=== PATIENT | female | born 1970 | race Caucasian/White ===

== ENCOUNTER 2017-09-20 07:52 | Emergency (ER) | payer BC ==
[2017-09-20 08:03] VITALS: BP 123/71
--- NOTE | 2017-09-20 09:07 | UC ---
Eye Complaint HPI - HPI Summary HPI Summary: 47 year old female with eye complaint. Possible RIGHT pinkeye. Woke up yesterday w/ RIGHT eye drainage. Today pt had more RIGHT eye drainage, irritation and crusting. Has had a cold last week but no fever or trauma. no FB sensation. no vision changes [ End ] - History of Current Complaint Chief Complaint: UCEye Stated Complaint: RIGHT EYE COMPLAINT Time Seen by Provider: 09/20/17 08:57 Hx Obtained From: Patient ?: No Onset/Duration: Gradual Onset Timing: Constant Severity Initially: Mild Severity Currently: Mild Location of Injury: Conjunctiva, Sclera Aggravating Factor(s): Nothing Alleviating Factor(s): Nothing Associated Signs And Symptoms: Positive: Drainage (Purulent). Negative: Vision Impairment Bilateral - Allergies/Home Medications Allergies/Adverse Reactions: Allergies Allergy/AdvReac Type Severity Reaction Status Date / Time No Known Allergies Allergy Verified 09/20/17 07:57 PMH/Surg Hx/FS Hx/Imm Hx Previously Healthy: Yes - Surgical History Surgical History: None - Social History Occupation: Employed Full-time Lives: With Family Alcohol Use: Occasionally Substance Use Type: None Smoking Status (MU): Never Smoked Tobacco - Immunization History Most Recent Influenza Vaccination: not yet Review of Systems Constitutional: Negative Skin: Negative Eyes: Negative, Drainage, Eye Redness ENT: Negative Respiratory: Negative Cardiovascular: Negative Gastrointestinal: Negative Genitourinary: Negative Motor: Negative Neurovascular: Negative Musculoskeletal: Negative Neurological: Negative Psychological: Negative Is Patient Immunocompromised?: No All Other Systems Reviewed And Are Negative: Yes Physical Exam Triage Information Reviewed: Yes Appearance: Well-Appearing, No Pain Distress, Well-Nourished Vital Signs: Initial Vital Signs Temp 98 F 09/20/17 07:58 Pulse 81 09/20/17 07:58 Resp 16 09/20/17 07:58 BP 123/71 09/20/17 07:58 Pulse Ox 99 09/20/17 07:58 Vital Signs Reviewed: Yes Eye Exam: Normal Eyes: Positive: Conjunctiva Inflamed, Discharge - right eye purulent dried D/C upper eye lid ENT Exam: Normal Dental Exam: Normal Neck exam: Normal Neck: Positive: 1 Respiratory Exam: Normal Cardiovascular Exam: Normal Musculoskeletal Exam: Normal Neurological Exam: Normal Psychological Exam: Normal Skin Exam: Normal Eye Complaint Course/Dx - Differential Dx/Diagnosis Differential Diagnosis/HQI/PQRI: Conjunctivitis Provider Diagnoses: Right eye conjunctivitis Discharge - Discharge Plan Condition: Good Disposition: HOME Prescriptions: Neomycin/Polym/HC OPTH.SUSP* [Cortisporin OPHTH.SUSP*] 1 drop RIGHT EYE Q4H #1 btl Patient Education Materials: Conjunctivitis (ED) Additional Instructions: Follow up for evaluation if any concerns
== END 2017-09-20 09:17 | disposition home or self-care (01) ==
LOC: UCCORT 07:52
DX: H10.31 Unspecified acute conjunctivitis, right eye (principal)
CPT/HCPCS: 99212; G0463

== ENCOUNTER 2019-08-11 08:17 | Emergency (ER) | payer BC ==
[2019-08-11 09:18] VITALS: BP 134/78
--- NOTE | 2019-08-11 09:59 | UC ---
Eye Complaint HPI - HPI Summary HPI Summary: 49 year old female with c/o left eye drainage since Sunday. + crusting upon waking, + thick discharge from eye. + mild irritation, no pain, no vision changes. no fever, chills, no URI symptoms. - History of Current Complaint Chief Complaint: UCEye Stated Complaint: LEFT EYE COMPLAINT Time Seen by Provider: 08/11/19 09:45 Hx Obtained From: Patient Hx Last Menstrual Period: 08/01/19 ?: No Onset/Duration: Sudden Onset, Lasting Days Pain Intensity: 0 - Allergies/Home Medications Allergies/Adverse Reactions: Allergies Allergy/AdvReac Type Severity Reaction Status Date / Time No Known Allergies Allergy Verified 08/11/19 09:13 PMH/Surg Hx/FS Hx/Imm Hx Previously Healthy: Yes - Surgical History Surgical History: None - Family History Known Family History: Positive: Non-Contributory - Social History Alcohol Use: Occasionally Substance Use Type: None Smoking Status (MU): Never Smoked Tobacco - Immunization History Most Recent Influenza Vaccination: not yet Review of Systems All Other Systems Reviewed And Are Negative: Yes Constitutional: Positive: Negative Skin: Positive: Negative Eyes: Positive: Drainage, Eye Redness ENT: Positive: Negative Is Patient Immunocompromised?: No Physical Exam Triage Information Reviewed: Yes Appearance: Well-Appearing, No Pain Distress, Well-Nourished Vital Signs: Initial Vital Signs Temp 98.3 F 08/11/19 09:13 Pulse 70 08/11/19 09:13 Resp 16 08/11/19 09:13 BP 134/78 08/11/19 09:13 Pulse Ox 100 08/11/19 09:13 Vital Signs Reviewed: Yes Eyes: Positive: Conjunctiva Inflamed, Discharge - left eye with watery discharge , injected conjunctiva. ENT: Positive: Hearing grossly normal, Pharynx normal, TMs normal, Uvula midline. Negative: Tonsillar swelling, Tonsillar exudate, Sinus tenderness Neck: Positive: Supple, Nontender, No Lymphadenopathy Neurological Exam: Normal Psychological Exam: Normal Skin Exam: Normal Eye Complaint Course/Dx - Course Course Of Treatment: conjunctivitis: - ANtibiotic drops as directed- every 4 hours while awake until completely symptom free for 24 hours - Increase hygiene- wash anything that touches eye daily - Go to ER with increased pain, swelling, pain with moving eye, vision changes - REturn if no improvement within 2-3 days - Differential Dx/Diagnosis Differential Diagnosis/HQI/PQRI: Orbital Cellulitis, Uveitis Provider Diagnosis: Conjunctivitis Discharge ED - Sign-Out/Discharge Documenting (check all that apply): Patient Departure All imaging exams completed and their final reports reviewed: No Studies - Discharge Plan Condition: Good Disposition: HOME Prescriptions: Polymyx/Trimethoprim OPTH* [Polytrim OPHTH*] 1 drop LEFT EYE Q4H #1 btl Patient Education Materials: Conjunctivitis (ED) Referrals: [facility] [Outside] No Primary Care Phys,NOPCP [Primary Care Provider] - Additional Instructions: - ANtibiotic drops as directed- every 4 hours while awake until completely symptom free for 24 hours - Increase hygiene- wash anything that touches eye daily - Go to ER with increased pain, swelling, pain with moving eye, vision changes - REturn if no improvement within 2-3 days - Billing Disposition and Condition Condition: GOOD Disposition: Home
== END 2019-08-11 10:05 | disposition home or self-care (01) ==
LOC: UCCORT 08:17
DX: H57.9 Unspecified disorder of eye and adnexa (principal)
CPT/HCPCS: 99212; G0463